=== PATIENT | female | born 2000 | race Caucasian/White ===

== ENCOUNTER 2024-09-21 15:46 | Emergency (ER) | payer BC ==
[2024-09-21 15:52] VITALS: RESP 16; TEMP 97.6
[2024-09-21 16:30] LABS: ALT 76 U/L (4-34); AST 38 U/L (14-36); African American GFR (CKD) >90 (>60 ml/min/1.73 sqM); Albumin 5.1 g/dL (3.5-5.0); Alkaline Phosphatase 58 U/L (38-126); Anion Gap 15 mmol/L; Blood Urea Nitrogen 13 mg/dL (7-17); Calcium 10.3 mg/dL (8.4-10.2); Carbon Dioxide 19 mmol/L (22-30); Chloride 106 mmol/L (98-107); Glucose 99 mg/dL (74-99); Magnesium 1.7 mg/dL (1.6-2.3); Non-African American GFR(CKD) >90 (>60 ml/min/1.73 sqM); Potassium 3.8 mmol/L (3.5-5.1); Sodium 140 mmol/L (137-145); Total Protein 8.5 g/dL (6.3-8.2)
[2024-09-21 16:31] LABS: Basophils # (A) 0.02 10*3/uL (0.00-0.10); Basophils % (A) 0.3 %; Eosinophils # (A) 0.00 10*3/uL (0.04-0.35); Eosinophils % (A) 0.0 %; HCT 42.0 % (37.2-46.3); HGB 14.4 g/dL (12.0-15.0); Lymphocytes # (A) 1.99 10*3/uL (0.90-5.00); Lymphocytes % (A) 25.0 %; MCH 29.8 pg (27.0-32.0); MCHC 34.3 g/dL (32.0-37.0); MCV 86.8 fL (80.0-97.0); Monocytes # (A) 0.42 10*3/uL (0.20-1.00); Monocytes % (A) 5.3 %; Neutrophils # (A) 5.53 10*3/uL (1.80-7.70); Neutrophils % (A) 69.3 %; Platelet Count 345 10*3/uL (140-440); RBC 4.84 10*6/uL (4.10-5.20); RDW 12.5 % (11.5-14.5); WBC 7.97 10*3/uL (4.50-10.00)
[2024-09-21 16:44] LABS: INR 1.1 (<1.2); Partial Thromboplastin Time 24.4 sec (22.0-30.0); Prothrombin Time 11.7 sec (10.0-12.5)
--- NOTE | 2024-09-21 18:08 | ED ---
General Adult HPI - General Source: patient, RN notes reviewed Mode of arrival: ambulatory Limitations: no limitations <Leobardo Alonso - Last Filed: 09/21/24 18:10> - General Source: patient, RN notes reviewed Mode of arrival: ambulatory Limitations: no limitations <Henry Laguna - Last Filed: 09/21/24 21:37> - General Chief complaint: Chest Pain Stated complaint: chest pain, left arm pain Time Seen by Provider: 09/21/24 15:58 - History of Present Illness Initial comments: Quick note: This is a 24-year-old female with history of celiac disease presenting for chest pain x 3 days. Patient describes initial pain as intermittent "tightness" with difficulty sleeping due to fluctuations of pulse rate according to patient. Patient states pulse rate has been between 52 bpm and was 75 bpm. States he began having sudden onset pallor/clamminess and left arm/neck pain/stiffness about 1 hour prior to ER arrival. Endorses use of Lexapro and hydroxyzine with no relief. Patient states he has a cardiology appointment scheduled for 10/05/2024. States he "needs maintenance" medication to control his heart rate until his appointment date due to inability to sleep. Denies dyspnea, dizziness, nausea/vomiting. (Leobardo Alonso) 24-year-old female presents emergency department with chief complaint of palpitations. She states that she was seen at outside facility for the similar reason was started on Lexapro. She states that she randomly starts getting her heart rate to significant elevate in which she states it has been up as high as 160s. Patient states that it causes her to feel short of breath and tight at that time. Patient denies any prior cardiac disease states that she currently is on hydroxyzine and Lexapro started by an outside ER facility as they felt she had anxiety. Patient states she does have a cardiology appointment in 2 weeks. Patient denies any current dyspnea dizziness headache vomiting no chance . (Henry Laguna) - Related Data Allergies Allergy/AdvReac Type Severity Reaction Status Date / Time Bleach (Sodium Hypochlorite) Allergy Dyspnea Verified 09/21/24 15:53 Review of Systems ROS Other: All systems not noted in ROS Statement are negative. <Leobardo Alonso - Last Filed: 09/21/24 18:10> ROS Other: All systems not noted in ROS Statement are negative. <Luz ElenaHenry Rojas - Last Filed: 09/21/24 21:37> ROS Statement: Those systems with pertinent positive or pertinent negative responses have been documented in the HPI. Past Medical History Additional Past Medical History / Comment(s): cilac disease Past Surgical History: No Surgical Hx Reported Past Psychological History: Anxiety, Depression Smoking Status: Vaper <CelesteLeobardo - Last Filed: 09/21/24 18:10> General Exam Limitations: no limitations <Leobardo Alonso - Last Filed: 09/21/24 18:10> General appearance: alert, in no apparent distress Head exam: Present: atraumatic, normocephalic, normal inspection Eye exam: Present: normal appearance, PERRL, EOMI. Absent: scleral icterus, conjunctival injection, periorbital swelling ENT exam: Present: normal exam, normal oropharynx, mucous membranes moist Neck exam: Present: normal inspection, full ROM. Absent: tenderness, meningismus, lymphadenopathy Respiratory exam: Present: normal lung sounds bilaterally. Absent: respiratory distress, wheezes, rales, rhonchi, stridor Cardiovascular Exam: Present: regular rate, normal rhythm, normal heart sounds. Absent: systolic murmur, diastolic murmur, rubs, gallop, clicks GI/Abdominal exam: Present: soft, normal bowel sounds. Absent: distended, tenderness, guarding, rebound, rigid Neurological exam: Present: alert, oriented X3, CN II-XII intact Skin exam: Present: warm, dry, intact, normal color. Absent: rash <Luz ElenaHenry Rojas - Last Filed: 09/21/24 21:37> - General Exam Comments Initial Comments: Visual Physical Exam Vital signs reviewed General: Well-appearing, nontoxic, no acute distress. Head: Normocephalic, atraumatic Eyes: PERRLA, EOMI ENT: Airway patent Chest: Nonlabored breathing Skin: No visual rash, normal skin tone Neuro: Alert and oriented 3 Musculoskeletal: No gross abnormalities (Leobardo Alonso) Course Vital Signs 09/21/24 15:49 Temperature 97.6 F Pulse Rate 95 Respiratory 16 Rate Blood Pressure 122/81 O2 Sat by Pulse 98 Oximetry EKG Findings - EKG Comments: EKG Findings:: EKG performed at 15:58 EKG sinus rhythm with sinus arrhythmia rate of 88 MD 124 QRS 93 QT/qtc 377/423 - EKG Results: EKG: interpreted by ERMD <Henry Laguna - Last Filed: 09/21/24 21:37> Medical Decision Making - Lab Data Result diagrams: 09/21/24 16:02 09/21/24 16:02 <Leobardo Alonso - Last Filed: 09/21/24 18:10> - Lab Data Result diagrams: 09/21/24 16:02 09/21/24 16:02 <Henry Laguna - Last Filed: 09/21/24 21:37> - Medical Decision Making I completed the quick note portion of this chart signed ESTRELLA Akbar (Leobardo Alonso) Was pt. sent in by a medical professional or institution ([facility], [facility], urgent care, hospital, or care home...) When possible be specific @ -No Did you speak to anyone other than the patient for history (EMS, parent, family, police, friend...)? What history was obtained from this source @ -No Did you review nursing and triage notes (agree or disagree)? Why? @ -I reviewed and agree with nursing and triage notes Were old charts reviewed (outside hosp., previous admission, EMS record, old EKG, old radiological studies, urgent care reports/EKG's, care home records)? Report findings @ -No old charts were reviewed Differential Diagnosis (chest pain, altered mental status, abdominal pain women, abdominal pain men, vaginal bleeding, weakness, fever, dyspnea, syncope, headache, dizziness, GI bleed, back pain, seizure, CVA, palpatations, mental health, musculoskeletal)? @ -Differential Palpitations Ventricular arrhythmias, atrial arrhythmias, myocardial infarction, anemia, thyrotoxicosis, electrolyte imbalance, hypokalemia, pulmonary embolism, pulmonary disease, drugs, alcohol, anxiety, stress.... This is not meant to be an all-inclusive list. EKG interpreted by me (3pts min.). @ -As above X-rays interpreted by me (1pt min.). @ -Chest x-ray shows no acute cardiopulmonary process. CT interpreted by me (1pt min.). @ -None done U/S interpreted by me (1pt. min.). @ -None done What testing was considered but not performed or refused? (CT, X-rays, U/S, labs)? Why? @ -None What meds were considered but not given or refused? Why? @ -None Did you discuss the management of the patient with other professionals (professionals i.e. , PA, [facility], lab, RT, psych nurse, executive secretary social welfare, starch and prosize mixer, teacher, senior compliance officer, comp field case manager)? Give summary @ -No Was smoking cessation discussed for >3mins.? @ -No Was critical care preformed (if so, how long)? @ -No Were there social determinants of health that impacted care today? How? (Jv elessness, low income, unemployed, alcoholism, drug addiction, transportation, low edu. Level, literacy, decrease access to med. care, snf, rehab)? @ -No Was there de-escalation of care discussed even if they declined (Discuss DNR or withdrawal of care, Hospice)? DNR status @ -No What co-morbidities impacted this encounter? (DM, HTN, Smoking, COPD, CAD, Cancer, CVA, ARF, Chemo, Hep., AIDS, mental health diagnosis, sleep apnea, morbid obesity)? @ -None Was patient admitted / discharged? Hospital course, mention meds given and route, prescriptions, significant lab abnormalities, going to OR and other pertinent info. @ -Discharge patient presented for work including labs, EKG chest x-ray with no acute findings. Patient was recent started on medications we discussed that she is increased her fluid intake, follow-up with her PCP and cardiology and return parameters discussed. Undiagnosed new problem with uncertain prognosis? @ -No Drug Therapy requiring intensive monitoring for toxicity (Heparin, Nitro, Insulin, Cardizem)? @ -No Were any procedures done? @ -No Diagnosis/symptom? @Palpitations Acute, or Chronic, or Acute on Chronic? @ -Acute Uncomplicated (without systemic symptoms) or Complicated (systemic symptoms)? @ -Complicated Side effects of treatment? @ -No Exacerbation, Progression, or Severe Exacerbation? @ -No Poses a threat to life or bodily function? How? (Chest pain, USA, ID, pneumonia, PE, COPD, DKA, ARF, appy, cholecystitis, CVA, Diverticulitis, Homicidal, Suicida l, threat to staff... and all critical care pts) @ -No (Henry Laguna) - Lab Data Lab Results 09/21/24 09/21/24 09/21/24 Range/Units 16:02 16:02 16:02 WBC 7.97 (4.50-10.00) 10*3/uL RBC 4.84 (4.10-5.20) 10*6/uL Hgb 14.4 (12.0-15.0) g/dL Hct 42.0 (37.2-46.3) % MCV 86.8 (80.0-97.0) fL MCH 29.8 (27.0-32.0) pg MCHC 34.3 (32.0-37.0) g/dL Plt Count 345 (140-440) 10*3/uL MPV 9.2 L (9.5-12.2) fL Immature Gran % (Auto) 0.1 % Neutrophils % 69.3 % Lymphocytes % 25.0 % Monocytes % 5.3 % Eosinophils % 0.0 % Basophils % 0.3 % Immature Gran # 0.01 (0.00-0.04) 10*3/uL Neutrophils # 5.53 (1.80-7.70) 10*3/uL Lymphocytes # 1.99 (0.90-5.00) 10*3/uL Monocytes # 0.42 (0.20-1.00) 10*3/uL Eosinophils # 0.00 L (0.04-0.35) 10*3/uL Basophils # 0.02 (0.00-0.10) 10*3/uL PT 11.7 (10.0-12.5) sec INR 1.1 (<1.2) APTT 24.4 (22.0-30.0) sec Sodium 140 (137-145) mmol/L Potassium 3.8 (3.5-5.1) mmol/L Chloride 106 (98-107) mmol/L Carbon Dioxide 19 L (22-30) mmol/L Anion Gap 15 mmol/L BUN 13 (7-17) mg/dL Creatinine 0.75 (0.52-1.04) mg/dL Est GFR (CKD-EPI)AfAm >90 (>60 ml/min/1.73 sqM) Est GFR (CKD-EPI)NonAf >90 (>60 ml/min/1.73 sqM) Glucose 99 (74-99) mg/dL Calcium 10.3 H (8.4-10.2) mg/dL Magnesium 1.7 (1.6-2.3) mg/dL Total Bilirubin 1.2 (0.2-1.3) mg/dL AST 38 H (14-36) U/L ALT 76 H (4-34) U/L Alkaline Phosphatase 58 (38-126) U/L Troponin I (0.000-0.034) ng/mL Total Protein 8.5 H (6.3-8.2) g/dL Albumin 5.1 H (3.5-5.0) g/dL TSH (0.465-4.680) mIU/L 09/21/24 09/21/24 Range/Units 16:02 20:11 WBC (4.50-10.00) 10*3/uL RBC (4.10-5.20) 10*6/uL Hgb (12.0-15.0) g/dL Hct (37.2-46.3) % MCV (80.0-97.0) fL MCH (27.0-32.0) pg MCHC (32.0-37.0) g/dL Plt Count (140-440) 10*3/uL MPV (9.5-12.2) fL Immature Gran % (Auto) % Neutrophils % % Lymphocytes % % Monocytes % % Eosinophils % % Basophils % % Immature Gran # (0.00-0.04) 10*3/uL Neutrophils # (1.80-7.70) 10*3/uL Lymphocytes # (0.90-5.00) 10*3/uL Monocytes # (0.20-1.00) 10*3/uL Eosinophils # (0.04-0.35) 10*3/uL Basophils # (0.00-0.10) 10*3/uL PT (10.0-12.5) sec INR (<1.2) APTT (22.0-30.0) sec Sodium (137-145) mmol/L Potassium (3.5-5.1) mmol/L Chloride (98-107) mmol/L Carbon Dioxide (22-30) mmol/L Anion Gap mmol/L BUN (7-17) mg/dL Creatinine (0.52-1.04) mg/dL Est GFR (CKD-EPI)AfAm (>60 ml/min/1.73 sqM) Est GFR (CKD-EPI)NonAf (>60 ml/min/1.73 sqM) Glucose (74-99) mg/dL Calcium (8.4-10.2) mg/dL Magnesium (1.6-2.3) mg/dL Total Bilirubin (0.2-1.3) mg/dL AST (14-36) U/L ALT (4-34) U/L Alkaline Phosphatase (38-126) U/L Troponin I <0.012 (0.000-0.034) ng/mL Total Protein (6.3-8.2) g/dL Albumin (3.5-5.0) g/dL TSH 2.780 (0.465-4.680) mIU/L Disposition <Leobardo Alonso - Last Filed: 09/21/24 18:10> Is patient prescribed a controlled substance at d/c from ED?: No Time of Disposition: 21:37 <Henry Laguna - Last Filed: 09/21/24 21:37> Clinical Impression: Palpitations Disposition: HOME SELF-CARE Condition: Stable Instructions (If sedation given, give patient instructions): Heart Palpitations (ED) Additional Instructions: Please return to the Emergency Department if symptoms worsen or any other concerns. Referrals: Pillo Murrell MD [Primary Care Provider] - 1-2 days
--- NOTE | 2024-09-21 19:39 | XR ---
EXAMINATION TYPE: XR chest 2V DATE OF EXAM: 09/21/2024 6:57 PM COMPARISON: 03/20/2006 CLINICAL INDICATION: Female, 24 years old with history of Chest Pain, TECHNIQUE: XR chest 2V view(s) obtained. FINDINGS: The heart size is normal. The pulmonary vasculature is normal. The lungs are clear. IMPRESSION: 1. No acute pulmonary process. [facility], , 09/21/2024 7:37 PM
[2024-09-21] MEDS: SODIUM CHLORIDE 0.9% 1,000 ML IV ONE (21:48)
[2024-09-21 22:51] VITALS: BP 118/88; PULSE 70
== END 2024-09-22 00:07 | disposition home or self-care (01) ==
LOC: EC 15:46
DX: R00.2 Palpitations (principal); F17.290 Nicotine dependence, other tobacco product, uncomplicated; Z91.048 Other nonmedicinal substance allergy status
CPT/HCPCS: 36415; 71046; 80053; 83735; 84443; 84484; 85025; 85610; 85730; 93005; 96360; 96361; 99285